=== PATIENT | female | born 1985 ===

== ENCOUNTER → 2019-02-17 | Outpatient (CLI) | payer BC ==
[~2019-02-17] MED LIST: SUMA50TA35 PO
--- NOTE | 2019-02-18 14:16 | EKG ---
FACILITY: [facility] [place] PATIENT NAME: Crystal Castro : [id number] MR: [id number] V: [id number] EXAM DATE: ORDERING PHYSICIAN: JEANNA GUTIERREZ TECHNOLOGIST: NATHEN Cordoba Reason : PRECONCEPTION Blood Pressure : / mmHG Vent. Rate : 064 BPM Atrial Rate : 064 BPM P-R Int : 166 ms QRS Dur : 080 ms QT Int : 430 ms P-R-T Axes : 069 061 045 degrees QTc Int : 443 ms Normal sinus rhythm with sinus arrhythmia Normal ECG No previous ECGs available Referred By: SLOANE Confirmed By:
== END ==
LOC: RESP 11:45
PROVIDERS: ATTEND Obstetrics & Gynecology
DX: Z02.9 Encounter for administrative examinations, unspecified (principal)